=== PATIENT | female | born 1990 | race Caucasian/White ===

== ENCOUNTER 2021-09-01 07:16 | Outpatient (REF) | payer BC, SELFPAY ==
[2021-09-01 11:35] LABS: Alanine Aminotransferase 13 U/L (0-31); Anion Gap 11 (12-20); Aspartate Amino Transferase 13 U/L (5-31); Blood Urea Nitrogen 16 mg/dL (9-16); Carbon Dioxide 27 mmol/L (22-29); Chloride 104 mmol/L (96-108); Cholesterol 183 mg/dL; Estimated Glomerular Filt Rate > 60; Glucose Fasting 84 mg/dL (60-99); HDL Cholesterol 55 mg/dL; LDL Cholesterol Calculated 112 mg/dl; Potassium 4.2 mmol/L (3.3-5.1); Sodium 138 mmol/L (135-145); Triglycerides 83 mg/dL
[2021-09-01 12:19] LABS: Vitamin D 25-OH Total 25.7 ng/mL (>30)
== END 2021-09-01 07:17 | disposition home or self-care (01) ==
LOC: HO.HMGCLDS 07:16
PROVIDERS: PCP Internal Medicine; Visit Provider Internal Medicine
DX: Z00.01 Encounter for general adult medical examination with abnormal findings (principal); E55.9 Vitamin D deficiency, unspecified
CPT/HCPCS: 36415; 80048; 80061; 82306; 84450; 84460

== ENCOUNTER 2022-09-19 08:23 | Outpatient (AMB) | payer BC, SELFPAY ==
[2022-09-19 08:24] VITALS: BP 108/74; PULSE 76; O2SAT 100; BMI 24.0
--- NOTE | 2022-09-19 08:24 | A.OFFPC_ITS ---
Vital Signs 09/19/22 08:24 Height 5 ft 5 in Weight 144 lb 6 oz BMI 24.0 BP 108/74 Blood Pressure Location Lt brachial Position Sitting Pulse 76 Pulse Source Pulse Oximeter Pulse Oximetry (%) 100 Oxygen Delivery Method Room Air Intake Visit Reasons: annual PE Allergies No Known Allergies Allergy (Verified 09/19/22 08:50) Medication List - Last Reconciled 09/19/22 by Citlalli Alvarado MD buspirone 5 mg PO TID levonorgestrel (Liletta) intrauterine Tobacco use date assessed: 09/19/22 Dental Screening Dental Screen Date: 09/19/22 Did you have a dental visit in the last 12 months?: Yes Did you have a dental problem in the last 6 months where you did not have access to dental care?: No Was dental information given to patient?: No HPI annual PE HPI Details 32-year-old lady here today for physical exam. She has generalized anxiety disorder currently taking buspirone, which has been helping, only taking twice a day, and has needed only take an extra dose once or twice during the 1st week that she started taking it. Has history of vitamin-D deficiency, currently taking [id number] vitamin-D supplements at present time. Has history of abnormal Pap smear with JAH -3 noted on last Pap smear done 2021 at [facility] done by Dr. Cha Jj. Patient states that she had a LEEP procedure done 08/19/2022 at [facility] with normal findings. [facility] Medical History Abnormal Pap smear of cervix Generalized anxiety disorder Skin lesion of back Vitamin D deficiency Surgical History (Updated 09/19/22 @ 08:54 by Citlalli Alvarado MD) History of loop electrical excision procedure (LEEP) No pertinent past surgical history Family History Mother Substance use disorder Mental health disorder Cirrhosis Social History Housing: House Patient Tobacco Use Status: Former Tobacco user e-Cigarette/Vaping Use: Never Used service: No Current occupational status: employed Cognitive needs: No Hearing needs: No Vision needs: No Female Reproductive History Menstrual Date of last menstrual period: 09/18/21 control method: progestin IUCD Number of Living Children: 2 History of abnormal pap smear: Yes History of STI: No Other: sees [facility] at [facility] Questionnaire PHQ-9 Over the last 2 weeks, how often have you been bothered by any of the following problems? 1. Little interest or pleasure in doing things: not at all 2. Feeling down, depressed, or hopeless: not at all 3. Trouble falling or staying asleep, or sleeping too much: not at all 4. Feeling tired or having little energy: more than half the days 5. Poor appetite or overeating: not at all 6. Feeling bad about yourself - or that you are a failure or have let yourself or your family down: not at all 7. Trouble concentrating on things, such as reading the newspaper or watching television: not at all 8. Moving or speaking so slowly that other people could have noticed. Or the opposite - being so fidgety or restless that you have been moving around a lot more than usual: not at all 9. Thoughts that you would be better off or of hurting yourself in some way: not at all Total score: 2 Depression Screening Interpretation: Negative 96990 - PHQ-9 Billing: Yes Source: Developed by Drs. Greg Vázquez, Lanie Hernandez, Lauri Noriega and colleagues, with an educational cole from [employer] Thrive Questionnaire Date Thrive assessed: 09/19/22 I am a: Patient Within the past 12 months, did the food you bought not last and you didn't have the money to get more?: Never true Within the past 12 months, did you worry whether your food would run out before you got money to buy more?: Never true Do you have trouble paying for medicines?: No Do you have trouble getting transportation to medical appointments?: No Do you have trouble paying your heating and electricity bill?: No Do you have trouble taking care of your child, family member or friend?: No Do you have trouble with day-to-day activities such as bathing, preparing meals, shopping, managing finances, etc.?: No Are you currently unemployed and looking for a job?: No Are you interested in more education?: No Currently or been in a relationship where the following occur: no concerns reported AUDIT C Alcohol Use Questionnaire (AUDIT-C) 1. How often do you have a drink containing alcohol?: Never 3. How often do you have six or more drinks on one occasion?: Never Total Score: 0 Score Reviewed/Action Taken: Yes GLEN-7 AMB Questionnaire GLEN-7 Date GLEN - 7 assessed: 09/19/22 Feeling nervous, anxious, or on edge: 0 = Not at all Not being able to stop or control worryin = Not at all Worrying too much about different things: 0 = Not at all Trouble relaxin = Not at all Being so restless that it is hard to sit still: 0 = Not at all Becoming easily annoyed or irritable: 0 = Not at all Feeling afraid as if something awful might happen: 0 = Not at all Total GLEN-7 score (0-4 normal; 5-9 mild; 10-14 moderate; 15-21 severe): 0 Source: Developed by Drs. Greg Vázquez, Lanie Hernandez, Lauri Noriega and colleagues, with an educational cole from [employer] GLEN-7 Assessment Billing GLEN-7 Assessment Tool: GLEN-7 Assessment 47054 Review of Systems Const All systems reviewed & are unremarkable except as noted in HPI and below Denies fever(s), Denies headache(s) and Denies weakness Eyes Reports no additional complaints ENT Reports no additional complaints, Denies dizziness and Denies headache(s) Card Reports no additional complaints, Denies chest pain, Denies leg edema and Denies dyspnea Resp Denies cough and Denies dyspnea GI Denies abdominal pain, Denies nausea and Denies vomiting Denies urinary frequency, Denies dysuria and Denies urinary urgency Musc Reports no additional complaints Skin/Breast Denies breast swelling, Denies breast skin changes, Denies breast pain, Denies breast mass, Denies dry skin, Denies lesions and Denies rash Neuro Reports no additional complaints, Denies dizziness, Denies headache(s) and Denies weakness Psych Reports no additional complaints Endo Reports no additional complaints Anibal/Lymph Reports no additional complaints Aller/Immun Reports no additional complaints Physical exam (Primary Care) Vital Signs: Last Vital Signs Pulse 76 09/19/22 08:24 BP 108/74 09/19/22 08:24 Pulse Ox 100 09/19/22 08:24 Oxygen Delivery Method Room Air 09/19/22 08:24 BMI result Body Mass Index 24.0 Tobacco/Smoking Status: Tobacco use Status Tobacco use date assessed 09/19/22 09/19/22 08:29 Patient Tobacco Use Status Former Tobacco user 09/19/22 08:29 e-Cigarette/Vaping Use Never Used 09/19/22 08:29 Depression Screening Interpretation: Negative Thrive Assessment: Date of Thrive Assessment Date Thrive assessed 08/31/21 09/19/22 08:29 Currently or been in a relationship where the following occur: no concerns reported Const General: comfortable, no acute distress and alert Orientation/consciousness: patient oriented x3 Limitations: no limitations HENMT Ears: external ears normal, TM's normal bilaterally and EAC's normal General nose exam: Normal external nose present and No nasal discharge present Mouth: Normal oral and palatal mucosa present, oropharynx normal and moist mucous membranes Eyes General: appearance normal, both eyes and all related structures Conjunctivae: conjunctivae normal Sclerae: sclerae normal Pupils: Equal, round and reactive pupils present EOM: EOMs intact bilaterally Neck Neck: Yes full ROM, Yes no lymphadenopathy and Yes supple Chest Breast/axilla palpation: normal palpation of the breasts Resp Effort & Inspection: normal respiratory effort and able to speak in complete sentences Auscultation: clear to auscultation bilaterally Cardio Rate: regular rate Rhythm: regular rhythm Heart sounds: S1 normal heart sound present and S2 normal heart sound present Peripheral pulses: Peripheral pulses 2+ throughout GI Palpation (GI): Soft to palpation, nontender and no masses Auscultation: normal bowel sounds Other: Goes to [facility], had abnormal Pap smear last year, status post deep August 19, with normal findings per patient General: Yes no CVA tenderness Back/Spine/Pelvis Back: no CVA tenderness and No back tenderness Skin General skin exam: no rashes or lesions noted Neuro General: patient oriented x3, gait normal, tone normal, moves all extremities, Normal light touch and pain sensation and no focal motor deficits Cranial nerves: Yes CN's II-XII intact bilaterally and Yes Equal, round and reactive pupils present Cognition (Neuro): normal cognition Gait exam (Neuro): Normal gait present Motor exam (neuro): 5/5 motor strength present throughout Extrem General: Yes full ROM, Yes no joint enlargement, Yes no clubbing, cyanosis or edema, Yes no calf tenderness and Yes normal gait Psych Appearance: grossly normal and well kempt Mental Status: mental status grossly normal Speech and movement: Normal speech and movement present Affect: normal affect Attitude: cooperative Thought process: Normal thought process present Assessment and Plan Assessment & Plan (1) Vitamin D deficiency: Code(s): E55.9 - Vitamin D deficiency, unspecified Plan: Will check vitamin-D level continue with taking iizz-wrk-csmxavg vitamin-D 3 at 2000 units daily (2) Generalized anxiety disorder: Code(s): F41.1 - Generalized anxiety disorder Plan: Stable controlled on buspirone 5 mg taken 1 tablet twice a day, refill sent (3) Abnormal Pap smear of cervix: Comment: 09/18/2021, done by Dr. Cha jj at [facility]- JAH -3, severe dysplasia Code(s): R87.619 - Unspecified abnormal cytological findings in specimens from cervix uteri Plan: Followed at [facility] O[facility]YN, status sleep with normal findings 4 weeks ago (4) Annual visit for general adult medical examination with abnormal findings: Code(s): Z00.01 - Encounter for general adult medical examination with abnormal findings Plan: Will check appropriate labs. Continue regular dental visit every 6 months and regular eye exams, at least every 2 years. Take adequate calcium in diet and vitamin-D 3 at 2000 IU per cap once a day, in addition to weight-bearing exercises to help maintain good muscle tone and weight control. Instructed to do self-breast exam, and recommended to get yearly mammogram, starting at age 40. Declines any vaccinations, did get her Tdap when she was with her 1st child. She sees [facility] for routine skin exam, yearly Orders: Orders Glucose Fasting Today E55.9 - Vitamin D deficiency, unspecified, F41.1 - Generalized anxiety disorder, Z00.01 - Encounter for general adult medical examination with abnormal findings Lipid Panel Today E55.9 - Vitamin D deficiency, unspecified, F41.1 - Generalized anxiety disorder, Z00.01 - Encounter for general adult medical examination with abnormal findings Vitamin D 25-OH Total Today E55.9 - Vitamin D deficiency, unspecified, F41.1 - Generalized anxiety disorder, Z00.01 - Encounter for general adult medical examination with abnormal findings Medications: Refilled buspirone 5 mg PO TID 90 tabs 5RF Coding Level of Care Code Est Pt Prev Care 18-39y(84031) Diagnoses Vitamin D deficiency E55.9 Generalized anxiety disorder F41.1 Abnormal Pap smear of cervix R87.619 Annual visit for general adult medical examination with abnormal findings Z00.01 Additional Codes GLEN-7 Assessment Billing - GLEN-7 Assessment Tool: GLEN-7 Assessment 37581 ([id number])
== END 2022-09-19 11:03 | disposition home or self-care (01) ==
PROVIDERS: Visit Provider Internal Medicine
DX: Z00.01 Encounter for general adult medical examination with abnormal findings (principal); E55.9 Vitamin D deficiency, unspecified; F41.1 Generalized anxiety disorder; R87.619 Unspecified abnormal cytological findings in specimens from cervix uteri
CPT/HCPCS: 99395

== ENCOUNTER 2022-09-19 09:06 | Outpatient (REF) | payer BC, SELFPAY ==
[2022-09-19 12:22] LABS: Cholesterol 169 mg/dL; Glucose Fasting 86 mg/dL (60-99); HDL Cholesterol 52 mg/dL; LDL Cholesterol Calculated 105 mg/dl; Triglycerides 63 mg/dL
[2022-09-19 12:59] LABS: Vitamin D 25-OH Total 37.9 ng/mL (>30)
== END 2022-09-19 09:07 | disposition home or self-care (01) ==
LOC: HO.HMGCLDS 09:06
PROVIDERS: PCP Internal Medicine; Visit Provider Internal Medicine
DX: Z00.01 Encounter for general adult medical examination with abnormal findings (principal); F41.1 Generalized anxiety disorder; E55.9 Vitamin D deficiency, unspecified
CPT/HCPCS: 36415; 80061; 82306; 82947

== ENCOUNTER 2023-09-22 08:59 | Outpatient (AMB) | payer BC, SELFPAY ==
[2023-09-22 09:00] VITALS: BP 112/70; PULSE 64; O2SAT 99; BMI 23.3
--- NOTE | 2023-09-22 09:00 | A.OFFPC_ITS ---
Vital Signs 09/22/23 09:00 Height 5 ft 5 in Weight 140 lb BMI 23.3 BP 112/70 Blood Pressure Location Rt brachial Position Sitting Pulse 64 Pulse Source Pulse Oximeter Pulse Oximetry (%) 99 Intake Visit Reasons: Annual PE Intake Note: patient is here for annual exam pap: yearly pap, patient is unsure when last pap was but will request it and scan once received. Ch[employer]inder Required: No Accompanied by: Self / Same As Patient Allergies No Known Allergies Allergy (Verified 09/22/23 09:29) Medication List - Last Reconciled 09/22/23 by Citlalli Alvarado MD buspirone 5 mg PO TID levonorgestrel (Liletta) intrauterine Tobacco use date assessed: 09/22/23 Dental Screening Dental Screen Date: 09/22/23 Did you have a dental visit in the last 12 months?: Yes Did you have a dental problem in the last 6 months where you did not have access to dental care?: No Was dental information given to patient?: Patient has dentist HPI Annual PE HPI Details 33-year-old lady here today for physical exam. She has been seeing [facility], Dr. Eubanks prior for her routine Pap and pelvic exam. Has history of high-grade dysplasia JAH-3 in 09/12/2021, had repeat Pap done last year which showed normal findings She has generalized anxiety disorder, currently on buspirone 5 mg 1 tablet 2 times a day. 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 Complains of recurrent migraine headaches, maybe occurring once or twice a month. Takes Excedrin which has afforded some relief, would like to try intranasal sumatriptan. [facility] Medical History (Updated 09/22/23 @ 09:52 by Citlalli Alvarado MD) COVID-19 vaccine series declined Skin lesion of back Vitamin D deficiency Generalized anxiety disorder Abnormal Pap smear of cervix Surgical History (Updated 09/22/23 @ 09:31 by Citlalli Alvarado MD) History of loop electrical excision procedure (LEEP) Family History Mother Substance use disorder Mental health disorder Cirrhosis Social History Housing: House Patient Tobacco Use Status: Former Tobacco user e-Cigarette/Vaping Use: Never Used service: No Current occupational status: employed Cognitive needs: No Hearing needs: No Vision needs: No Female Reproductive History Menstrual control method: progestin IUCD and copper IUCD History of abnormal pap smear: Yes (2021) Other: Sees Dr. Cha kay at [facility] Questionnaire PHQ-9 Over the last 2 weeks, how often have you been bothered by any of the following problems? 1. Little interest or pleasure in doing things: not at all 2. Feeling down, depressed, or hopeless: not at all 3. Trouble falling or staying asleep, or sleeping too much: not at all 4. Feeling tired or having little energy: not at all 5. Poor appetite or overeating: not at all 6. Feeling bad about yourself - or that you are a failure or have let yourself or your family down: not at all 7. Trouble concentrating on things, such as reading the newspaper or watching television: not at all 8. Moving or speaking so slowly that other people could have noticed. Or the opposite - being so fidgety or restless that you have been moving around a lot more than usual: not at all 9. Thoughts that you would be better off or of hurting yourself in some way: not at all Total score: 0 Depression Screening Interpretation: Negative Depression Screening Done: Yes 77652 - PHQ-9 Billing: Yes Source: Developed by Drs. Greg Vázquez, Lanie Hernandez, Lauri Noriega and colleagues, with an educational cole from [employer]. Thrive Questionnaire Date Thrive assessed: 09/22/23 I am a: Patient What is your living situation today?: I have a steady place to live Within the past 12 months, did the food you bought not last and you didn't have the money to get more?: Never true Within the past 12 months, did you worry whether your food would run out before you got money to buy more?: Never true Do you have trouble paying for medicines?: No Do you have trouble getting transportation to medical appointments?: No Do you have trouble paying your heating and electricity bill?: No Do you have trouble taking care of your child, family member or friend?: No Do you have trouble with day-to-day activities such as bathing, preparing meals, shopping, managing finances, etc.?: No Are you currently unemployed and looking for a job?: No Are you interested in more education?: No Please select the resources that you would like help with: None Currently or been in a relationship where the following occur: No concerns reported THRIVE Score: 0 AUDIT C Alcohol Use Questionnaire (AUDIT-C) 1. How often do you have a drink containing alcohol?: Monthly or less 2. How many drinks containing alcohol do you have on a typical day when you are drinking?: 1 or 2 3. How often do you have six or more drinks on one occasion?: Never Total Score: 1 Score Reviewed/Action Taken: Yes GLEN-7 AMB Questionnaire GLEN-7 Date GLEN - 7 assessed: 09/22/23 Feeling nervous, anxious, or on edge: 1 = Several days Not being able to stop or control worryin = Not at all Worrying too much about different things: 0 = Not at all Trouble relaxin = Not at all Being so restless that it is hard to sit still: 0 = Not at all Becoming easily annoyed or irritable: 1 = Several days Feeling afraid as if something awful might happen: 0 = Not at all Total GLEN-7 score (0-4 normal; 5-9 mild; 10-14 moderate; 15-21 severe): 2 Source: Developed by Drs. Greg Vázquez, Lanie Hernandez, Lauri Noriega and colleagues, with an educational cole from [employer]. GLEN-7 Assessment Billing GLEN-7 Assessment Tool: GLEN-7 Assessment 92074 Review of Systems Const All systems reviewed & are unremarkable except as noted in HPI and below Denies fever(s), Denies headache(s) and Denies weakness Eyes Reports no additional complaints ENT Reports no additional complaints, Denies dizziness and Denies headache(s) Card Reports no additional complaints, Denies chest pain, Denies leg edema and Denies dyspnea Resp Denies cough and Denies dyspnea GI Denies abdominal pain, Denies nausea and Denies vomiting Denies urinary frequency, Denies dysuria and Denies urinary urgency Musc Reports no additional complaints Skin/Breast Details: Sees [facility] for her routine skin exam Denies breast swelling, Denies breast skin changes, Denies breast pain, Denies breast mass, Denies dry skin, Denies lesions and Denies rash Neuro Reports no additional complaints, Denies dizziness, Denies headache(s) and Denies weakness Psych Reports as per HPI Endo Reports no additional complaints Anibal/Lymph Reports no additional complaints Aller/Immun Reports no additional complaints Physical exam (Primary Care) Vital Signs: Last Vital Signs Pulse 64 09/22/23 09:00 BP 112/70 09/22/23 09:00 Pulse Ox 99 09/22/23 09:00 BMI result Body Mass Index 23.3 Tobacco/Smoking Status: Tobacco use Status Tobacco use date assessed 09/22/23 09/22/23 09:02 Patient Tobacco Use Status Former Tobacco user 09/22/23 09:02 e-Cigarette/Vaping Use Never Used 09/22/23 09:02 PHQ-9: PHQ-9 Score PHQ-9: Total score 0 09/22/23 09:30 Depression Screening Interpretation: Negative Thrive Assessment: Date of Thrive Assessment Date Thrive assessed 09/22/23 09/22/23 09:02 Currently or been in a relationship where the following occur: No concerns reported Const General: comfortable, no acute distress and alert Orientation/consciousness: patient oriented x3 HENMT Ears: external ears normal, TM's normal bilaterally and EAC's normal General nose exam: Normal external nose present and No nasal discharge present Mouth: Normal oral and palatal mucosa present, oropharynx normal and moist mucous membranes Eyes General: appearance normal, both eyes and all related structures Conjunctivae: conjunctivae normal Sclerae: sclerae normal Pupils: Equal, round and reactive pupils present EOM: EOMs intact bilaterally Neck Neck: Yes full ROM, Yes no lymphadenopathy and Yes supple Chest Breast/axilla palpation: normal palpation of the breasts Resp Effort & Inspection: normal respiratory effort and able to speak in complete sentences Auscultation: clear to auscultation bilaterally Cardio Rate: regular rate Rhythm: regular rhythm Heart sounds: S1 normal heart sound present and S2 normal heart sound present Peripheral pulses: Peripheral pulses 2+ throughout GI Palpation (GI): Soft to palpation, nontender and no masses Auscultation: normal bowel sounds Other: Goes to [facility], had abnormal Pap smear last year, status post deep August 19, with normal findings per patient General: Yes no CVA tenderness Back/Spine/Pelvis Back: no CVA tenderness and No back tenderness Skin General skin exam: no rashes or lesions noted Neuro General: patient oriented x3, gait normal, tone normal, moves all extremities, Normal light touch and pain sensation and no focal motor deficits Cranial nerves: Yes CN's II-XII intact bilaterally and Yes Equal, round and reactive pupils present Cognition (Neuro): normal cognition Gait exam (Neuro): Normal gait present Motor exam (neuro): 5/5 motor strength present throughout Extrem General: Yes full ROM, Yes no joint enlargement, Yes no clubbing, cyanosis or edema, Yes no calf tenderness and Yes normal gait Psych Appearance: grossly normal and well kempt Mental Status: mental status grossly normal Speech and movement: Normal speech and movement present Affect: normal affect Attitude: cooperative Thought process: Normal thought process present Assessment and Plan Assessment & Plan (1) Annual visit for general adult medical examination with abnormal findings: Code(s): Z00.01 - Encounter for general adult medical examination with abnormal findings Plan: Will check appropriate labs. Recommended dental visit every 6 months and regular eye exams, at least every 2 years. Take adequate calcium in diet and vitamin-D 3 at 2000 IU per cap once a day, in addition to weight-bearing exercises to help maintain good muscle tone and weight control. Instructed to do self-breast exam, and recommended to get yearly mammogram, starting at age 40. Goes to [facility] for her routine Pap and pelvic exam, currently up-to-date per patient, she has declined getting any vaccines especially the COVID vaccine, but states that she did get it Tdap when she was , given by her OB (2) COVID-19 vaccine series declined: Code(s): Z28.21 - Immunization not carried out because of patient refusal; Z28.310 - Unvaccinated for COVID-19 Plan: Declined COVID vaccination (3) Refused influenza vaccine: Code(s): Z28.21 - Immunization not carried out because of patient refusal Plan: Refused influenza (4) Headache: Code(s): R51.9 - Headache, unspecified Qualifiers: Headache type: unspecified Headache chronicity pattern: unspecified pattern Intractability: not intractable Qualified Code(s): R51.9 - Headache, unspecified Plan: Will try on sumatriptan 10 mg per actuation, to use as directed (5) Generalized anxiety disorder: Code(s): F41.1 - Generalized anxiety disorder Plan: Will decrease buspirone dose to 5 mg 1 tablet twice a day (6) Vitamin D deficiency: Code(s): E55.9 - Vitamin D deficiency, unspecified Plan: Will check vitamin-D level (7) Abnormal Pap smear of cervix: Comment: 09/18/2021, done by Dr. Cha del castillo at [facility]- JAH -3, severe dysplasia Code(s): R87.619 - Unspecified abnormal cytological findings in specimens from cervix uteri Plan: Followed at [facility] Orders: Orders Hemoglobin and Hematocrit 09/22/23 E55.9 - Vitamin D deficiency, unspecified, F41.1 - Generalized anxiety disorder, R51.9 - Headache, unspecified, Z00.01 - Encounter for general adult medical examination with abnormal findings, Z13.1 - Encounter for screening for diabetes mellitus, Z13.220 - Encounter for screening for lipoid disorders Alanine Aminotransferase 09/22/23 E55.9 - Vitamin D deficiency, unspecified, F41.1 - Generalized anxiety disorder, R51.9 - Headache, unspecified, Z00.01 - Encounter for general adult medical examination with abnormal findings, Z13.1 - Encounter for screening for diabetes mellitus, Z13.220 - Encounter for screening for lipoid disorders Aspartate Amino Transferase 09/22/23 E55.9 - Vitamin D deficiency, unspecified, F41.1 - Generalized anxiety disorder, R51.9 - Headache, unspecified, Z00.01 - Encounter for general adult medical examination with abnormal findings, Z13.1 - Encounter for screening for diabetes mellitus, Z13.220 - Encounter for screening for lipoid disorders Basic Metabolic Panel Fasting 09/22/23 E55.9 - Vitamin D deficiency, unspecified, F41.1 - Generalized anxiety disorder, R51.9 - Headache, unspecified, Z00.01 - Encounter for general adult medical examination with abnormal findings, Z13.1 - Encounter for screening for diabetes mellitus, Z13.220 - Encounter for screening for lipoid disorders Lipid Panel 09/22/23 E55.9 - Vitamin D deficiency, unspecified, F41.1 - Generalized anxiety disorder, R51.9 - Headache, unspecified, Z00.01 - Encounter for general adult medical examination with abnormal findings, Z13.1 - Encounter for screening for diabetes mellitus, Z13.220 - Encounter for screening for lipoid disorders Vitamin D 25-OH Total 09/22/23 E55.9 - Vitamin D deficiency, unspecified, F41.1 - Generalized anxiety disorder, R51.9 - Headache, unspecified, Z00.01 - Encounter for general adult medical examination with abnormal findings, Z13.1 - Encounter for screening for diabetes mellitus, Z13.220 - Encounter for screening for lipoid disorders Medications: New sumatriptan 10 mg/actuation administer into one nostril as a single dose; if 2nd dose needed,administer into other nostril after at least 2 hrs, NTE 2 doses (40 mg) per episode 20 mg intranasal Q2H PRN 6 ea 0RF migraine headache Changed From buspirone 5 mg PO TID 90 tabs 5RF To buspirone 5 mg PO BID 60 tabs 5RF Coding Level of Care Code Est Pt Prev Care 18-39y(55670) Diagnoses Annual visit for general adult medical examination with abnormal findings Z00.01 COVID-19 vaccine series declined Z28.21; Z28.310 Refused influenza vaccine Z28.21 Nonintractable headache, unspecified chronicity pattern, unspecified headache type R51.9 Headache type: unspecified Headache chronicity pattern: unspecified pattern Intractability: not intractable Generalized anxiety disorder F41.1 Vitamin D deficiency E55.9 Abnormal Pap smear of cervix R87.619 Additional Codes GLEN-7 Assessment Billing - GLEN-7 Assessment Tool: GLEN-7 Assessment [id number] ([id number])
== END 2023-09-22 09:50 | disposition home or self-care (01) ==
PROVIDERS: PCP Internal Medicine; Visit Provider Internal Medicine
DX: Z00.01 Encounter for general adult medical examination with abnormal findings (principal); R51.9 Headache, unspecified; Z28.21 Immunization not carried out because of patient refusal; Z28.310 Unvaccinated for COVID-19; F41.1 Generalized anxiety disorder; E55.9 Vitamin D deficiency, unspecified; R87.619 Unspecified abnormal cytological findings in specimens from cervix uteri
CPT/HCPCS: 99213; 99395

== ENCOUNTER 2023-10-03 07:42 | Outpatient (REF) | payer BC, SELFPAY ==
[2023-10-03 10:06] LABS: Hematocrit 36.1 % (37.0-47.0); Hemoglobin 13.2 g/dl (12.0-16.0)
[2023-10-03 10:39] LABS: Alanine Aminotransferase 10 U/L (0-31); Anion Gap 10 (12-20); Aspartate Amino Transferase 14 U/L (5-31); Blood Urea Nitrogen 11 mg/dL (9-16); Calcium 9.3 mg/dL (8.4-10.2); Carbon Dioxide 29 mmol/L (22-29); Chloride 104 mmol/L (96-108); Cholesterol 181 mg/dL (<200); Estimated Glomerular Filt Rate > 60; Glucose Fasting 92 mg/dL (60-99); HDL Cholesterol 57 mg/dL (>40); LDL Cholesterol Calculated 106 mg/dL (<100); Potassium 3.9 mmol/L (3.3-5.1); Sodium 139 mmol/L (135-145); Triglycerides 92 mg/dL (<150)
[2023-10-03 10:47] LABS: Vitamin D 25-OH Total 55.8 ng/mL (>30)
== END 2023-10-03 07:43 | disposition home or self-care (01) ==
LOC: HO.HMGCLDS 07:42
PROVIDERS: PCP Internal Medicine; Visit Provider Internal Medicine
DX: Z00.01 Encounter for general adult medical examination with abnormal findings (principal); Z13.1 Encounter for screening for diabetes mellitus; Z13.220 Encounter for screening for lipoid disorders; R51.9 Headache, unspecified; F41.1 Generalized anxiety disorder; E55.9 Vitamin D deficiency, unspecified
CPT/HCPCS: 36415; 80048; 80061; 82306; 84450; 84460; 85014; 85018

== ENCOUNTER 2024-10-12 08:21 | Outpatient (AMB) | payer BC, SELFPAY ==
[2024-10-12 08:55] VITALS: BP 100/64; PULSE 74; RESP 15; TEMP 36.9; O2SAT 99; BMI 23.5
--- NOTE | 2024-10-12 08:55 | MHC.PC.OV ---
Vital Signs 10/12/24 08:55 Height 5 ft 5 in Weight 141 lb BMI 23.5 BP 100/64 Blood Pressure Location Rt brachial Position Sitting Respiration 15 Pulse 74 Pulse Source Pulse Oximeter Temp 98.4 F Temp Source Oral Pulse Oximetry (%) 99 Oxygen Delivery Method Room Air Intake Visit Reasons: annual exam Allergies No Known Allergies Allergy (Verified 10/18/24 02:10) Medication List - Last Reconciled 10/12/24 by Citlalli Alvarado MD buspirone 5 mg PO DAILY levonorgestrel (Liletta) intrauterine sumatriptan succinate take 1 tab at onset of headache; if no relief, may repeat 1 tab after at least 2 hrs; max = 2 tabs/24 hrs PO Tobacco use date assessed: 10/12/24 Dental Screening Dental Screen Date: 10/12/24 Did you have a dental visit in the last 12 months?: Yes Did you have a dental problem in the last 6 months where you did not have access to dental care?: No Was dental information given to patient?: Patient has dentist HPI annual exam HPI Details 34 year-old lady here today for physical exam. She has history of high-grade dysplasia JAH-3 in 09/12/2021, had repeat Pap done last year which showed normal findings, currently being seen at [facility]. She has generalized anxiety disorder, currently on buspirone 5 mg 1 tablet once a day as she noticed that her lips are getting very dry on higher dose of buspirone Has had COVID vaccines but has not received a booster, does not get flu shot, no Tdap seen on vaccination history, but patient states that she was given 1 when she was seeing her instructor private when she was . Complains of recurrent migraine headaches, currently taking sumatriptan Noticing hair thinning over the last several months. [facility] Medical History (Updated 10/12/24 @ 09:26 by Citlalli Alvarado MD) Hair thinning COVID-19 vaccine series declined Skin lesion of back Vitamin D deficiency Generalized anxiety disorder Abnormal Pap smear of cervix Surgical History History of loop electrical excision procedure (LEEP) Family History Mother Substance use disorder Mental health disorder Cirrhosis Social History Housing: House Patient Tobacco Use Status: Former Tobacco user e-Cigarette/Vaping Use: Never Used service: No Current occupational status: employed Cognitive needs: No Hearing needs: No Vision needs: Yes Female Reproductive History Menstrual Other: Sees Dr. Cha Jj at [facility] Questionnaire PHQ-9 Over the last 2 weeks, how often have you been bothered by any of the following problems? 1. Little interest or pleasure in doing things: not at all 2. Feeling down, depressed, or hopeless: not at all 3. Trouble falling or staying asleep, or sleeping too much: not at all 4. Feeling tired or having little energy: several days 5. Poor appetite or overeating: not at all 6. Feeling bad about yourself - or that you are a failure or have let yourself or your family down: not at all 7. Trouble concentrating on things, such as reading the newspaper or watching television: not at all 8. Moving or speaking so slowly that other people could have noticed. Or the opposite - being so fidgety or restless that you have been moving around a lot more than usual: not at all 9. Thoughts that you would be better off or of hurting yourself in some way: not at all Total score: 1 Depression Screening Interpretation: Negative Depression Screening Done: Yes 80512 - PHQ-9 Billing: Yes Source: Developed by Drs. Greg Vázquez, Lanie Hernandez, Lauri Noriega and colleagues, with an educational cole from [employer] Thrive Questionnaire Date Thrive assessed: 10/05/24 I am a: Patient What is your living situation today?: I have a steady place to live Within the past 12 months, did the food you bought not last and you didn't have the money to get more?: Never true Within the past 12 months, did you worry whether your food would run out before you got money to buy more?: Never true Do you have trouble paying for medicines?: No Do you have trouble getting transportation to medical appointments?: No Do you have trouble paying your heating and electricity bill?: No Do you have trouble taking care of your child, family member or friend?: No Do you have trouble with day-to-day activities such as bathing, preparing meals, shopping, managing finances, etc.?: No Are you currently unemployed and looking for a job?: No Are you interested in more education?: No Please select the resources that you would like help with: None Currently or been in a relationship where the following occur: No concerns reported THRIVE Score: 0 AUDIT C Alcohol Use Questionnaire (AUDIT-C) 1. How often do you have a drink containing alcohol?: Monthly or less 2. How many drinks containing alcohol do you have on a typical day when you are drinking?: 1 or 2 3. How often do you have six or more drinks on one occasion?: Never Total Score: 1 Score Reviewed/Action Taken: Yes GLEN-7 AMB Questionnaire GLEN-7 Date GLEN - 7 assessed: 10/12/24 Feeling nervous, anxious, or on edge: 0 = Not at all Not being able to stop or control worryin = Not at all Worrying too much about different things: 0 = Not at all Trouble relaxin = Not at all Being so restless that it is hard to sit still: 0 = Not at all Becoming easily annoyed or irritable: 0 = Not at all Feeling afraid as if something awful might happen: 0 = Not at all Total GLEN-7 score (0-4 normal; 5-9 mild; 10-14 moderate; 15-21 severe): 0 Source: Developed by Drs. Greg Vázquez, Lanie Hernandez, Lauri Noriega and colleagues, with an educational cole from [employer] GLEN-7 Assessment Billing GLEN-7 Assessment Tool: GLEN-7 Assessment 61442 Review of Systems Const Denies fever(s), Denies headache(s) and Denies weakness Eyes Reports no additional complaints ENT Reports no additional complaints, Denies dizziness and Denies headache(s) Card Reports no additional complaints, Denies chest pain, Denies leg edema and Denies dyspnea Resp Denies cough and Denies dyspnea GI Denies abdominal pain, Denies nausea and Denies vomiting Denies urinary frequency, Denies dysuria and Denies urinary urgency Musc Reports no additional complaints Skin/Breast Details: Sees [facility] for her routine skin exam Reports as per HPI, Denies breast swelling, Denies breast skin changes, Denies breast pain, Denies breast mass, Denies dry skin, Denies lesions and Denies rash Neuro Reports no additional complaints, Denies dizziness, Denies headache(s) and Denies weakness Psych Reports as per HPI Endo Reports no additional complaints Anibal/Lymph Reports no additional complaints Aller/Immun Reports no additional complaints Physical exam (Primary Care) Vital Signs: Last Vital Signs Temp 98.4 F 10/12/24 08:55 Pulse 74 10/12/24 08:55 Resp 15 10/12/24 08:55 BP 100/64 10/12/24 08:55 Pulse Ox 99 10/12/24 08:55 Oxygen Delivery Method Room Air 10/12/24 08:55 BMI result Body Mass Index 23.5 Tobacco/Smoking Status: Tobacco use Status Tobacco use date assessed 10/12/24 10/12/24 08:59 Patient Tobacco Use Status Former Tobacco user 10/12/24 08:59 e-Cigarette/Vaping Use Never Used 10/12/24 08:59 PHQ-9: PHQ-9 Score PHQ-9: Total score 1 10/12/24 09:19 Depression Screening Interpretation: Negative Thrive Assessment: Date of Thrive Assessment Date Thrive assessed 10/05/24 10/12/24 08:59 Currently or been in a relationship where the following occur: No concerns reported Const General: comfortable, no acute distress and alert Orientation/consciousness: patient oriented x3 HENMT Ears: external ears normal, TM's normal bilaterally and EAC's normal General nose exam: Normal external nose present and No nasal discharge present Mouth: Normal oral and palatal mucosa present, oropharynx normal and moist mucous membranes Eyes General: appearance normal, both eyes and all related structures Conjunctivae: conjunctivae normal Sclerae: sclerae normal Pupils: Equal, round and reactive pupils present EOM: EOMs intact bilaterally Neck Neck: Yes full ROM, Yes no lymphadenopathy and Yes supple Chest Breast/axilla palpation: normal palpation of the breasts Resp Effort & Inspection: normal respiratory effort and able to speak in complete sentences Auscultation: clear to auscultation bilaterally Cardio Rate: regular rate Rhythm: regular rhythm Heart sounds: S1 normal heart sound present and S2 normal heart sound present Peripheral pulses: Peripheral pulses 2+ throughout GI Palpation (GI): Soft to palpation, nontender and no masses Auscultation: normal bowel sounds Other: Goes [facility], had abnormal Pap smear last year, status post deep August 19, with normal findings per patient General: Yes no CVA tenderness Back/Spine/Pelvis Back: no CVA tenderness and No back tenderness Skin General skin exam: no rashes or lesions noted Hair: general thinning Neuro General: patient oriented x3, gait normal, tone normal, moves all extremities, Normal light touch and pain sensation and no focal motor deficits Cranial nerves: Yes CN's II-XII intact bilaterally and Yes Equal, round and reactive pupils present Cognition (Neuro): normal cognition Gait exam (Neuro): Normal gait present Motor exam (neuro): 5/5 motor strength present throughout Extrem General: Yes full ROM, Yes no joint enlargement, Yes no clubbing, cyanosis or edema, Yes no calf tenderness and Yes normal gait Psych Appearance: grossly normal and well kempt Mental Status: mental status grossly normal Speech and movement: Normal speech and movement present Affect: normal affect Coding Level of Care Code Est Pt Prev Care 18-39y(02664) Diagnoses Annual visit for general adult medical examination with abnormal findings Z00.01 Generalized anxiety disorder F41.1 Vitamin D deficiency E55.9 Hair thinning L65.9 Additional Codes GLEN-7 Assessment Billing - GLEN-7 Assessment Tool: GLEN-7 Assessment 55312 ([id number]) PHQ-9 - 62887 - PHQ-9 Billing: Yes ([id number]) Assessment & Plan Assessment & Plan (1) Annual visit for general adult medical examination with abnormal findings: Code(s): Z00.01 - Encounter for general adult medical examination with abnormal findings Plan: Will check appropriate labs. Recommended dental visit every 6 months and regular eye exams, at least every 2 years. Take adequate calcium in diet and vitamin-D 3 at 2000 IU per cap once a day, in addition to weight-bearing exercises to help maintain good muscle tone and weight control. Instructed to do self-breast exam, and recommended to get yearly mammogram, starting at age 40. Currently goes to [facility] for routine Pap and pelvic exam. Declines COVID vaccine, reminded to get yearly flu shot (2) Generalized anxiety disorder: Code(s): F41.1 - Generalized anxiety disorder Category: Medical Plan: Continue buspirone 5 mg once a day (3) Vitamin D deficiency: Code(s): E55.9 - Vitamin D deficiency, unspecified Category: Medical Plan: Will check vitamin-D level (4) Hair thinning: Code(s): L65.9 - Nonscarring hair loss, unspecified Category: Medical Plan: Will check a CBC, TSH with reflex free T4, comprehensive metabolic panel. Avoid pulling hair tight . Avoid using harsh chemicals on hair Orders: Orders Lipid Panel 10/13/24 E55.9 - Vitamin D deficiency, unspecified, F41.1 - Generalized anxiety disorder, L65.9 - Nonscarring hair loss, unspecified, Z13.1 - Encounter for screening for diabetes mellitus, Z13.220 - Encounter for screening for lipoid disorders TSH reflex Free T4 10/13/24 E55.9 - Vitamin D deficiency, unspecified, F41.1 - Generalized anxiety disorder, L65.9 - Nonscarring hair loss, unspecified, Z13.1 - Encounter for screening for diabetes mellitus, Z13.220 - Encounter for screening for lipoid disorders Vitamin D 25-OH Total 10/13/24 E55.9 - Vitamin D deficiency, unspecified, F41.1 - Generalized anxiety disorder, L65.9 - Nonscarring hair loss, unspecified, Z13.1 - Encounter for screening for diabetes mellitus, Z13.220 - Encounter for screening for lipoid disorders Comprehensive [place]. Panel Fast 10/13/24 E55.9 - Vitamin D deficiency, unspecified, F41.1 - Generalized anxiety disorder, L65.9 - Nonscarring hair loss, unspecified, Z13.1 - Encounter for screening for diabetes mellitus, Z13.220 - Encounter for screening for lipoid disorders Complete Blood Count Auto Diff 10/13/24 E55.9 - Vitamin D deficiency, unspecified, F41.1 - Generalized anxiety disorder, L65.9 - Nonscarring hair loss, unspecified, Z13.1 - Encounter for screening for diabetes mellitus, Z13.220 - Encounter for screening for lipoid disorders IRON PROFILE 10/13/24 E55.9 - Vitamin D deficiency, unspecified, F41.1 - Generalized anxiety disorder, L65.9 - Nonscarring hair loss, unspecified, Z13.1 - Encounter for screening for diabetes mellitus, Z13.220 - Encounter for screening for lipoid disorders
--- OUTSIDE RECORDS SUMMARY | 2024-10-12 09:02 | XMS_ITS | Clinical Summary ---
Author Organization [facility] Address [address] [facility] [address] [place] [id number] Phone Care Team Providers Care Band Director Name Role Phone Citlalli Alvarado MD Primary Care Provider Krystyna Wood [employer] Unavailable [phone] Allergies No known active allergies Medications multivitamin Liqd Take 5 mL by mouth daily. Active vit C/Zn gluc/herbal no.325 (ELDERBERRY ZINC VIT C MM) by Mucous Membrane route. Active ascorbic acid, vitamin C, (VITAMIN C) 250 MG tablet Take 250 mg by mouth daily. Active Hospital, Clinic, or Other Facility Administered Medication Ordered Dose Route Frequency Start Date End Date Status levonorgestreL (MIRENA) 20 mcg/24 hours (7 yrs) 52 mg intrauterine device 1 eachIndications:Encounter for IUD removal and reinsertion 1 each Utrn Every 6 years 11/05/2021 Active Active Problems Problem Noted Date Diagnosed Date History of cervical dysplasia 08/20/2021 Overview (04/19/2024): 08/06/21 ASCUS, can't r/o HGSIL; positive HPV (not 16/18) 09/18/21- colpo done-1 biopsy of 1 acetowhite lesion was grade 3 dysplasia negative ECC. 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 I sketched the appearance of the cervix for Yohannes as I think this would be appropriate for TCA treatment. Also noted that LEEP would be the other treatment option. She is hoping to conceive and bear child in the future It is possible that the endocervical curettings will order picker/assembler some dysplasia that is at the edge of this lesion Resolved Problems Problem Noted Date Diagnosed Date Resolved Date Abnormal uterine bleeding 09/18/2017 Overview (09/18/2017): Irregular bleeding, began 2 years after starting [place] Assessment & Plan (09/18/2017 8:52 PM EDT): IUD appears to be in place No evidence of infection U/S ordered to check endometrial lining and check placement of IUD Follow up after U/S Immunizations Immunization Administration Dates Next Due HPV,quadrivalent 08/23/2010 INFLUENZA, SPLIT VIRUS, TRIVALENT W/ PRESERVATIV E IM 03/13/2011 Tdap 06/16/2015 Family History Medical History Relation Comments No Known Problems Father No Known Problems Mother Relation Status Comments Father Alive Mother Alive Social History Tobacco Use Types Packs/Day Years Used Date Smoking Tobacco: Former Smokeless Tobacco: Never Tobacco Cessation:Counseling Given: Not Answered Alcohol Use Standard Drinks/Week Comments No 0 (1 standard drink = 0.6 oz pur e alcohol) Education Answer Date Recorded Are you interested in more education? Not on judy e 06/21/2022 Are you concerned about learning? Not on file 06/21/2022 No 06/21/2022 No 06/21/2022 Digital Access Answer Date Recorded No 07/19/2022 No 07/19/2022 Reliable internet access at home? Not on file 07/19/2022 Device with a working camera? Not on file Comments No Sex and Gender Information Value Date Recorded Sex Assigned at Not on file Legal Sex Female 9:05 PM EDT Gender Identity Not on file Sexual Orientation Not on file Occupation Industry Job Start Date Job End Date Working Not on file Not on file Not on file Last Filed Vital Signs Vital Sign Reading Time Taken Comments Blood Pressure 104/72 04/19/2024 9:07 AM EST Pulse 74 09/17/2017 1:13 PM EDT Temperature 37.2 C (99 F) 09/17/2017 1:13 PM EDT Respiratory Rate - - Oxygen Saturation 97% 09/17/2017 1:13 PM EDT Inhaled Oxygen Concentration - - Weight 63.4 kg (139 lb 12.8 oz) 04/19/2024 9:07 AM EST Height 167.6 cm (5' 6 ) 04/17/2023 9:54 AM EST Body Mass Index 22.56 04/17/2023 9:54 AM EST Plan of Treatment Health Maintenance Due Date Last Done Comments DEPRESSION SCREENING 2001 SMOKING Hx and SMOKELESS TOBACCO SCREENING 2002 HEPATITIS C SCREENING 2007 HIV ONE-TIME SCREENING (18-65 YEARS) 2007 COVID-19 VACCINE ( season) 2023 11/23/2020, 10/17/2020 Adult Td,Tdap Booster 06/15/2025 06/16/2015 PAP SMEAR 04/19/2027 04/19/2024, 03/28, 04/18/2022, Additional history exists IUD 11/05/2029 11/05/2021 HEPATITIS A VACCINES Aged Out No long er eligible based on patient's age to complete this topic HIB VACCINES Aged Out No longer eligi ble based on patient's age to complete this topic MENINGOCOCCAL VACCINES (ACWY) Aged Out No longer eligible based on patient's age to complete this topic MENINGOCOCCAL VACCINES (B) Aged Out N o longer eligible based on patient's age to complete this topic PNEUMOCOCCAL VACCINES (0-49 years) Aged Out No longer eligible based on patient's age to complete this topic Medical Devices Implanted Type Area Net Sql Developer Device Identifier Shelf Expiration Date Model / Serial / Lot Iud Implanted:01/2022 (Quantity not on file) Intrauterine Device Procedures Procedure Name Priority Date/Time Associated Diagnosis Comments PAP TEST Routine 04/19/2024 12:00 AM EST from Last 3 Months or Most Recently Relevant to Health Maintenance Results * Pap Test (04/19/2024 12:00 AM EST) 04/19/2024 04/20/2024 8:1 3 AM EST Narrative SEE NARRATIVE - 04/26/2024 4:31 PM EST [address] [address] [employer] Internship: Reuben Albright MD DIESEL MECHANIC Cytology Report FINAL DIAGNOSIS A. PAP SMEAR (THIN PREP) CE: SPECIMEN ADEQUACY: Satisfactory for evaluation; transformation zone present. INTERPRETATION: NEGATIVE FOR INTRAEPITHELIAL LESION OR MALIGNANCY. This specimen was analyzed by the automated ThinPrep Imaging System ([employer] and manually rescreened by a spanish interpreter and/or pathologist. Electronically Signed Out By: BARRETT Galvan(ASCP) BARRETT Christine(ASCP) The Pap test is a screening test primarily for squamous cancers and precursors and has associated false-negative and false-positive results. New technologies such as liquid-based preparations may decrease but will not eliminate all false-negative results. Regular sampling and follow-up of unexplained clinical signs and symptoms are recommended to minimize false negative results. PROCEDURES/ADDENDA HPV Testing (Requested) Ordered Date: 04/20/2024 A. PAP SMEAR (THIN PREP) CE: High-risk HPV Panel w/ extended genotyping NEG HPV 16-NEG HPV 18-NEG HPV 45-NEG HPV 33/58-NEG HPV 31-NEG HPV 56/59/66-NEG HPV 51-NEG HPV 52-NEG HPV 35/39/68-NEG Performed by real-time polymerase chain reaction (PCR) at [facility], [address] [place] [address] using the FDA-approved BD Onclarity9 HPV Assay with extended genotyping. Uses of the assay in scenarios other than those approved by the FDA should be considered off-label use. The accuracy and precision of this test for all other off-label specimen sources has been verified in the Cytopathology Laboratory of the [facility] and has not been cleared or approved by the U.S. Food and Drug Administration. Clinical correlation is advised. The assay assesses the E6/E7 DNA target and utilizes human beta globin as an internal control. Cytology and HPV testing are screening assays and should not be used as the sole means of detecting cancer. False-positives and false-negatives can occur. CLINICAL HISTORY Date of Last Menstrual Period: Not Provided Menstrual History: Unknown Contraceptive History: IUD Infection History: HPV: OTHER HIGH RISK, 2022 HPV: HIGH RISK, 2021 Treatment History: LEEP: JAH 2, 2022 Other Clinical Conditions: Abnormal BX: JAH 2-3, 2022, 2021 Abnormal PAP: ASC-H, 2021 Diagnostic Pap SPECIMEN SOURCE A: PAP SMEAR (THIN PREP) CE Patient Name: ESAUTUCKER PhillipsY : 1990 (Age: 34) Sex: F Institution: [facility] Location: [facility] Date of Collection: 04/19/2024 Date of Reported: 04/26/2024 16:31 Results to: Radha Gunn MD Radha Gunn MD CYTOLOGY ORDERABLES Final Res ult SEE NARRATIVE from Last 3 Months or Most Recently Relevant to Health Maintenance Insurance [facility] PPO EPO [facility] PPO EPO [employer] PPO EPO Care Teams Band Director Relationship Specialty Start Date End Date Citlalli Alvarado MD [facility] [id number] PCP - General 12/10/16 Krystyna Wood NP [address] [place] [id number] [email or web address] Historical LMR Provider 12/12/16 Additional Source Comments The information contained in this document represents components of the legal health record. It is not the complete legal health record.[facility]
== END 2024-10-12 09:30 | disposition home or self-care (01) ==
LOC: HO.HMCC 08:22
PROVIDERS: PCP Internal Medicine; Visit Provider Internal Medicine
DX: Z00.01 Encounter for general adult medical examination with abnormal findings (principal); F41.1 Generalized anxiety disorder; E55.9 Vitamin D deficiency, unspecified; L65.9 Nonscarring hair loss, unspecified

== ENCOUNTER → 2024-10-12 08:21 | Outpatient (BNVA) | payer BC, SELFPAY | PROVIDERS: PCP Internal Medicine; Visit Provider Internal Medicine | DX: Z00.01 Encounter for general adult medical examination with abnormal findings (principal); F41.1 Generalized anxiety disorder; E55.9 Vitamin D deficiency, unspecified; L65.9 Nonscarring hair loss, unspecified | CPT/HCPCS: 96127 ==

== ENCOUNTER 2024-10-13 07:46 | Outpatient (REF) | payer BC, SELFPAY ==
--- OUTSIDE RECORDS SUMMARY | 2024-10-13 07:48 | XMS_ITS | Clinical Summary ---
Author Organization [facility] Address [address] [facility] [address] [place] [id number] Phone Care Team Providers Care Poison Information Specialist Name Role Phone Citlalli Alvarado MD Primary Care Provider Krystyna Wood CERT PHARMACY TECH Unavailable [phone] Allergies No known active allergies Medications multivitamin [...] is possible that the endocervical curettings will fish bait picker some dysplasia that is at the edge [...] this topic Medical Devices Implanted Type Area Special Agent In Charge Device Identifier Shelf Expiration Date Model / [...] SEE NARRATIVE - 04/26/2024 4:31 PM EST [address] [address] Pr Manager: Reuben Albright MD ELECTRICITY TRADING ANALYST Cytology Report FINAL DIAGNOSIS A. PAP SMEAR (THIN PREP) CE: SPECIMEN ADEQUACY: Satisfactory for evaluation; transformation zone present. INTERPRETATION: NEGATIVE FOR INTRAEPITHELIAL LESION OR MALIGNANCY. This specimen was analyzed by the automated ThinPrep Imaging System (Looker.) and manually rescreened by a butcher apprentice and/or pathologist. Electronically Signed Out By: BARRETT [...] by real-time polymerase chain reaction (PCR) at [facility], [address] [place] [address] using the FDA-approved BD Onclarity9 HPV Assay with extended genotyping. Uses of the assay in scenarios other than those approved by the FDA should be considered off-label use. The accuracy and precision of this test for all other off-label specimen sources has been verified in the Cytopathology Laboratory of the [facility] and has not been cleared or [...] : 1990 (Age: 34) Sex: F Institution: [facility] Location: [facility] Date of Collection: 04/19/2024 Date of Reported: 04/26/2024 16:31 Results to: Radha Gunn MD Radha Gunn MD CYTOLOGY ORDERABLES Final Res ult SEE NARRATIVE from Last 3 Months or Most Recently Relevant to Health Maintenance Insurance [facility] PPO EPO [facility] PPO EPO [facility] P[facility]PO Care Teams Poison Information Specialist Relationship Specialty Start Date End Date Citlalli Alvarado MD [facility] [place] [address] PCP - General 12/10/16 Krystyna Wood NP [address] [place] [id number] [email or web address] Historical LMR Provider 12/12/16 Additional Source Comments The information contained in this document represents components of the legal health record. It is not the complete legal health record.[facility]
[2024-10-13 11:10] LABS: MANUAL DIFF FLAG NO
[2024-10-13 11:20] LABS: Hematocrit 35.5 % (37.0-47.0); Hemoglobin 12.7 g/dl (12.0-16.0); Imm Gran Abs Auto 0.04 X10*3/uL (0.00-0.03); Imm Gran Pct Auto 0.7 % (0.0-0.4); Lymphocytes Absolute Auto 1.6 X10*3/uL (1.2-4.9); Mean Corpuscular HGB Conc 35.8 g/dl (31.0-35.0); Mean Corpuscular Hemoglobin 32.3 pg (27.0-33.0); Mean Corpuscular Volume 90.3 fL (80.0-98.0); NRBC Abs Auto 0.000 X10*3/uL (0.0-0.012); NRBC Pct Auto 0.0 /100WBC (0.0-0.2); Platelet Count 186 X10*3/uL (160-400); Red Blood Count 3.93 X10*6/uL (4.20-5.50); White Blood Count 5.7 X10*3/uL (4.8-10.8)
[2024-10-13 11:51] LABS: Alanine Aminotransferase 18 U/L (0-31); Albumin Level 4.5 g/dL (3.5-5.0); Alkaline Phosphatase 61 U/L (39-117); Anion Gap 11 (12-20); Aspartate Amino Transferase 19 U/L (5-31); Blood Urea Nitrogen 14 mg/dL (9-16); Calcium 8.6 mg/dL (8.4-10.2); Carbon Dioxide 26 mmol/L (22-29); Chloride 105 mmol/L (96-108); Cholesterol 171 mg/dL (<200); Estimated Glomerular Filt Rate > 60; HDL Cholesterol 51 mg/dL (>40); Iron 87 mcg/dL (30-160); Percent Iron Saturation 35 % (15-50); Potassium 4.1 mmol/L (3.3-5.1); Sodium 138 mmol/L (135-145); Total Iron Binding Capacity 250 mcg/dL (228-428); Total Protein 6.8 g/dL (6.5-8.0); Triglycerides 78 mg/dL (<150); Unsaturated Iron Binding 163 ug/dL
== END 2024-10-13 07:47 | disposition home or self-care (01) ==
LOC: HO.HMGCLDS 07:46
PROVIDERS: PCP Internal Medicine; Visit Provider Internal Medicine
DX: F41.1 Generalized anxiety disorder (principal); E55.9 Vitamin D deficiency, unspecified; L65.9 Nonscarring hair loss, unspecified; Z13.220 Encounter for screening for lipoid disorders; Z13.1 Encounter for screening for diabetes mellitus; Z13.6 Encounter for screening for cardiovascular disorders
CPT/HCPCS: 36415; 80053; 80061; 82306; 83540; 84443; 85025